=== PATIENT | female | born 2000 | race Two or more races ===

== ENCOUNTER 2024-11-16 19:34 | Emergency (ER) | payer OTHER ==
[~2024-11-16] VITALS: Ht 180.3 cm; Wt 88.5 kg
[2024-11-16] MEDS ORDERED: KETOROLAC TROMETHAMINE 30 MG VIAL IM STA (20:42)
[2024-11-16] MEDS ORDERED: CEFTRIAXONE SODIUM 1,000 MG VIAL IM STA (20:42)
== END 2024-11-16 20:55 | disposition home or self-care (01) ==
LOC: ER 19:34
DX: H60.90 Unspecified otitis externa, unspecified ear (principal)

== ENCOUNTER 2025-03-23 07:30 | Outpatient (CLI) | payer OTHER | END 2025-03-23 07:40 | disposition home or self-care (01) | LOC: PPH VACUNA 07:30 | PROVIDERS: ATTEND Emergency Medicine Pediatric Emergency Medicine | DX: Z23 Encounter for immunization (principal) ==